=== PATIENT | female | born 2000 | race Caucasian/White ===

== ENCOUNTER → 2021-03-10 14:02 | Outpatient (CLI) | payer OTHER, MEDICAID, SELFPAY ==
--- NOTE | 2021-03-10 14:08 | DI.US.S_ITS ---
PROCEDURE: US OB >= 14 WEEKS FETUS INDICATIONS: ANATOMY SCAN OUTSIDE/PRIOR DATING DATA: Last menstrual period (LMP): October 20, 2020 . LMP-based estimated date of delivery (ZACHARY): July 27, 2021 . First dating scan (date and location): [facility]; March 10, 2021 . Estimated date of delivery (ZACHARY) from first dating scan: July 26, 2021 . TECHNIQUE: Real-time scanning was performed of the fetus, with image documentation and biometric measurements. COMPARISON: None. FINDINGS: General: A single living intrauterine gestation is present. Presentation: Variable. Placenta: Placental position is right posterior , without previa. Amniotic fluid index: 16.8 cm, normal range is 5-24 cm. heart rate: 135 beats per minute. Maternal cervical canal: 3.7 cm long. Normal lower limit is 2.5 cm. biometrics: Biparietal diameter: 4.9 cm Head circumference: 17.8 cm Abdominal circumference: 14.4 cm Femur length: 3.2 cm Estimated gestational age from initial scan: not applicable. Composite gestational age from present scan: 20 weeks, 2 days Estimated weight and percentile: 321 g +/-48 g; 33rd percentile Measurement variability for biometric dating: +/- 7 days from 14 weeks to 15 weeks 6 days gestation, +/- 10 days from 16 weeks to 21 weeks 6 days gestation, +/- 2 weeks from 22 weeks to 27 weeks 6 days gestation, +/- 3 weeks for 28 weeks gestation or later. weight reference: 4500 g or EFW >90/95% is considered macrosomia or large for gestational age. EFW <10% is small for gestational age. EFW 5% or less is considered intra-uterine growth restriction. Anatomic survey: Neuro: Ventricles are non-dilated at less than 10 mm. Cisterna magna is normal at 3-11 mm. Cerebellum is normal in size and morphology. Nuchal skin fold: Normal at less than 6 mm between 14-21 weeks gestational age. Face: Nose and lips, facial profile are normal. Spine: No evidence for spina bifida. Heart: 4-chambered heart is present, with normal ventricular outflow tracts. Diaphragm: Diaphragm is intact. Stomach: Left-sided stomach is present. Kidneys: No hydronephrosis. Normal is less than 5 mm in 2nd trimester, less than 7 mm in 3rd trimester. Cord: 3-vessel cord . Placental cord insertion approximately 1.8 cm from the edge. Bladder: Normal in size. Extremities: All 4 extremities identified. . IMPRESSION: Live single intrauterine gestation as detailed above Dictated by: Stan Mondragon M.D. on 03/10/2021 at 16:22 Approved by: Stan Mondragon M.D. on 03/10/2021 at 16:25
== END ==
PROVIDERS: PCP Midwife; Referring Provider Midwife; Visit Provider Midwife
DX: Z34.82 Encounter for supervision of other normal pregnancy, second trimester (principal)
CPT/HCPCS: 76811

== ENCOUNTER 2021-11-30 09:04 | Emergency (ER) | payer OTHER, MEDICAID, SELFPAY ==
[2021-11-30 09:11] VITALS: BP 115/76; PULSE 78; RESP 16; TEMP 36.5; O2SAT 97; BMI 25.0
--- NOTE | 2021-11-30 09:33 | ED_ITS ---
HPI - Female Genitourinary General Chief complaint: Urogenital-Female Stated complaint: Thinks toxic shock syndrome Time Seen by Provider: 11/30/21 09:27 Source: patient and family Mode of arrival: Ambulatory History of Present Illness HPI Narrative: Patient here with . Complains tired fatigued. Has vaginal discharge. Patient states she forgot she left her diaphragm in for 5 days. Removed 2 days ago. Has had some pelvic discomfort and cramping. 4 months. Has been doing well. She did resume her periods. No fever chills. She may have seen a rash on her left hand but it has resolved. Related Data Home Medications Medication Instructions Recorded Confirmed No Known Home Medications 08/13/21 08/13/21 Allergies Allergy/AdvReac Type Severity Reaction Status Date / Time No Known Drug Allergies Allergy Unverified 08/13/21 11:44 Review of Systems Review of Systems Narrative: GENERAL: Denies chills, fatigue, malaise, fever, sweats. HEENT: Denies sinus pain, ear pain, sore throat RESPIRATORY: Denies dyspnea, cough CARDIOVASCULAR: Denies chest pain, palpitations GASTROINTESTINAL: Denies nausea, vomiting, abdominal pain : Denies dysuria, frequency, hematuria, positive for vaginal discharge MUSCULOSKELETAL: denies muscle or bony pain SKIN: Denies rash, skin lesions NEUROLOGIC: Denies weakness, numbness ROS Unobtainable: All systems reviewed & are unremarkable except as noted in HPI and below Patient History alcohol intake frequency: 0-2 drinks per day Substance Use Type: does not use Exam Narrative Exam Narrative: GENERAL: in no distress, not toxic not dyspneic HEAD: Normocephalic. EYES: Pupils equal round No scleral icterus. ENT: Mucous membranes moist. NECK: Trachea midline. CARDIOVASCULAR: Regular rate and rhythm without murmurs RESPIRATORY: Clear to auscultation. Breath sounds equal bilaterally. No wheezes, rales, or rhonchi. GASTROINTESTINAL: Abdomen soft, non-tender : Female nurseEileen, at bedside to senior quality control inspector and assist. Normal external exam. Slight white discharge in the vagina. No bleeding. No foreign body seen, no CMT. No adnexal tenderness. EXTREMITIES: No gross deformities. BACK: No flank tenderness. NEURO: AOx4. SKIN: Warm and dry PSYCH: Not anxious, is cooperative Initial Vital Signs Initial Vital Signs: Vital Signs Temperature 97.7 F 11/30/21 09:11 Pulse Rate 78 11/30/21 09:11 Respiratory Rate 16 11/30/21 09:11 Blood Pressure 115/76 11/30/21 09:11 Pulse Oximetry 97 11/30/21 09:11 Oxygen Delivery Method 11/30/21 09:11 Course Course Course Narrative: no new issues during course of stay Orders Ordered: ED Orders 11/30/21 09:45 CBC Auto Diff [Complete Blood Count AUTO DIFF] Stat CMP [Comprehensive Metabolic Panel] Stat 11/30/21 10:08 GC Screen Stat Wet Prep Tric BV Ca Stat Reevaluation(s) Reevaluation #1: pt tolerated procedure very well Reviewed results with patient. They are reassuring. No antibiotics indicated this time. Return precautions reviewed with patient Vital Signs Vital signs: Vital Signs - 8 hr 11/30/21 09:11 Temperature 97.7 F Pulse Rate 78 Respiratory Rate 16 Blood Pressure 115/76 Pulse Oximetry 97 Oxygen Delivery Method Room Air MDM - Female Genitourinary Lab Data Result diagrams: 11/30/21 09:45 11/30/21 09:45 Labs: Lab Results 11/30/21 11/30/21 Range/Units 09:45 09:45 WBC 4.5 (4.5-11.0) X10^3/uL RBC 4.38 (4.0-5.2) X10^6/uL Hgb 13.5 (12.0-16.0) g/dL Hct 39.4 (36-46) % MCV 89.9 (80-100) fL MCH 30.8 (26-34) PG MCHC 34.3 (30-36) % RDW 12.7 (11.6-14.8) % Plt Count 250 (150-400) X10^3/uL Neut % (Auto) 50.2 (50-75) % Lymph % (Auto) 35.0 (25-40) % [place] % (Auto) 10.2 (3-14) % Eos % (Auto) 3.3 (2-4) % Baso % (Auto) 1.3 (0-2) % Neut # (Auto) 2300 (7031-8381) /uL Lymph # (Auto) 1600 (8626-4481) /uL [place] # (Auto) 500 (0-900) /uL Eos # (Auto) 100 (0-450) /uL Baso # (Auto) 100 (0-100) /uL Sodium 139 (137-145) mmol/L Potassium 4.0 (3.4-5.1) mmol/L Chloride 107 (98-107) mmol/L Carbon Dioxide 27 (22-32) mmol/L BUN 14 (7-17) mg/dL Creatinine 0.71 (0.52-1.04) mg/dL Estimated GFR > 60 (>60) mL/min BUN/Creatinine Ratio 19.7 (6-22) Glucose 89 (70-100) mg/dL Calcium 8.8 (8.4-10.2) mg/dL Total Bilirubin 0.7 (0.2-1.3) mg/dL AST 23 (14-36) IU/L ALT 21 (<35) IU/L Alkaline Phosphatase 53 (38-126) U/L Total Protein 7.0 (6.3-8.2) g/dL Albumin 4.2 (3.5-5.0) g/dL Globulin 2.8 (1.7-4.1) g/dL Albumin/Globulin Ratio 1.5 (1.0-2.8) Point of Care Testing Test Results Negative Urine Dip Bedside Urine Glucose Negative Bedside Urine Bilirubin - Negative Bedside Urine Ketone - Negative Urine Specific [place] 1.020 Bedside Urine Occult Blood - Negative Bedside Urine pH 6 Bedside Urine Protein - Negative Bedside Urine Urobilinogen - Negative Bedside Urine Nitrite - Negative Bedside Urine Leukocytes - Negative Esterase MDM Narrative Medical decision making narrative: Appropriate for discharge home. Exam at 02/24 studies are reassuring. No signs of infection. Return precautions reviewed with patient. She desires discharge home. Discharge Plan Departure Patient Disposition: Home Clinical Impression: Vaginitis Instructions: DI for Vaginal Itching Activity Restrictions/Additional Instructions: No sexual activity, recommend pelvic rest until seen by family doctor for re- evaluation. Return if worse or for any questions or concerns. Prescriptions: No Action No Known Home Medications Referrals: Krista Moran ND [Primary Care Provider] - Visit Report Forms: Patient Portal/API
[2021-11-30 09:53] LABS: Add Manual Diff / Slide Review NO; Basophils Absolute Auto 100 /uL (0-100); Basophils Percent Auto 1.3 % (0-2); Eosinophils Absolute Auto 100 /uL (0-450); Eosinophils Percent Auto 3.3 % (2-4); Hematocrit 39.4 % (36-46); Hemoglobin 13.5 g/dL (12.0-16.0); Lymphocytes Absolute Auto 1600 /uL (1100-4500); Mean Corpuscular HGB Conc 34.3 % (30-36); Mean Corpuscular Hemoglobin 30.8 PG (26-34); Mean Corpuscular Volume 89.9 fL (80-100); Monocytes Absolute Auto 500 /uL (0-900); Monocytes Percent Auto 10.2 % (3-14); Neutrophils Absolute Auto 2300 /uL (1500-7000); Neutrophils Percent Auto 50.2 % (50-75); Platelet Count 250 X10^3/uL (150-400); Red Blood Cell Count 4.38 X10^6/uL (4.0-5.2); Red Cell Distribution Width 12.7 % (11.6-14.8); White Blood Cell Count 4.5 X10^3/uL (4.5-11.0)
[2021-11-30 10:02] LABS: Alanine Aminotransferase 21 IU/L (<35); Albumin 4.2 g/dL (3.5-5.0); Albumin Globulin Ratio 1.5 (1.0-2.8); Alkaline Phosphatase 53 U/L (38-126); Aspartate Aminotransferase 23 IU/L (14-36); BUN Creatinine Ratio 19.7 (6-22); Bilirubin Total 0.7 mg/dL (0.2-1.3); Blood Urea Nitrogen 14 mg/dL (7-17); Calcium 8.8 mg/dL (8.4-10.2); Carbon Dioxide 27 mmol/L (22-32); Chloride 107 mmol/L (98-107); Estimated Glomerular Filt Rate > 60 mL/min (>60); Globulin 2.8 g/dL (1.7-4.1); Glucose 89 mg/dL (70-100); HEMOLYSIS < 15 (0-50); Sodium 139 mmol/L (137-145)
== END 2021-11-30 11:32 | disposition home or self-care (01) ==
PROVIDERS: Emergency Provider Emergency Medicine; PCP Naturopath
DX: N76.0 Acute vaginitis (principal)
CPT/HCPCS: 36415; 80053; 81003; 81025; 85025; 87081; 87210; 99282

== ENCOUNTER → 2022-07-07 07:48 | Outpatient (CLI) | payer OTHER, MEDICAID, SELFPAY ==
--- NOTE | 2022-07-07 07:49 | DI.US.S_ITS ---
PROCEDURE: US PELVIC COMPLETE INDICATIONS: PELVIC AND PERINEAL PAIN TECHNIQUE: Real-time scanning was performed of the pelvic organs, with image documentation. Additional endovaginal scanning was necessary due to incomplete visualization of the adnexal and endometrial structures by transabdominal scanning. COMPARISON: None. FINDINGS: Uterus: Uterus is anteverted and normal in size at 7 x 3.4 x 4.6 cm. The myometrium is homogeneous. The endometrium measures 9 mm combined thickness. Ovaries: The right ovary measures 2.9 x 1.6 x 2 cm, with a calculated ovarian volume of 5 cc. The left ovary measures 3.2 x 1.8 x 2.9 cm, with a calculated ovarian volume of 8.9 cc. The ovaries have a normal sonographic appearance, with a dominant follicle within the left ovary that measures up to 1.6 cm. Less than 12 follicles can be seen in each ovary. No adnexal masses are seen. Other: No pathologic free abdominal or pelvic fluid. IMPRESSION: Normal pelvic ultrasound, without a cause of the patient's presenting history identified. We strive to produce accurate, complete, and clear reports of imaging services. To assist us in improving patient care, this report was composed using standard report templates and voice recognition software. Therefore, it may contain abnormal punctuation, insertions and/or omissions. Occasional wrong-word or sound-alike substitutions may occur. Though we review the report and make efforts to correct it, we do recommend that the report be read carefully in proper context to recognize any text inaccuracies. Dictated by: Cristi Mitchell M.D. on 07/07/2022 at 12:50 Approved by: Cristi Mitchell M.D. on 07/07/2022 at 12:51
== END ==
PROVIDERS: PCP Naturopath; Referring Provider Naturopath; Visit Provider Naturopath
DX: R10.2 Pelvic and perineal pain (principal)
CPT/HCPCS: 76830; 76856; 93975